=== PATIENT | male | born 1960 | race Caucasian/White ===

== ENCOUNTER 2022-09-07 14:30 | Emergency (ER) | payer OTHER ==
[~2022-09-07] VITALS: Ht 175.3 cm; Wt 98.9 kg
--- NOTE | 2022-09-07 14:40 | NUR ---
BIB [facility], FAMILY HE WAS TALKING TO ON THE PHONE CALLED 911 AFTER HE SOUNDED "LUPEE" AFTER TAKING HIS KETAMINE SL. PLACED IN BED, AAOX4, BREATHING EVEN AND UNLABORED SATURATING AT 97%RA.
--- NOTE | 2022-09-07 15:00 | NUR ---
AT BEDSIDE FOR EVAL.
--- NOTE | 2022-09-07 15:23 | NUR ---
Patient discharged to home in stable condition. Written and verbal after care instructions given. Patient verbalizes understanding of instruction.
[2022-09-07 15:26] VITALS: BP 145/97
== END 2022-09-07 15:26 | disposition home or self-care (01) ==
LOC: ER 14:32
DX: R41.82 Altered mental status, unspecified (principal); T41.295A Adverse effect of other general anesthetics, initial encounter; I10 Essential (primary) hypertension; E78.00 Pure hypercholesterolemia, unspecified; F41.9 Anxiety disorder, unspecified; F32.A Depression, unspecified; Y92.89 Other specified places as the place of occurrence of the external cause

== ENCOUNTER 2024-08-12 14:33 | Emergency (ER) | payer OTHER ==
[~2024-08-12] VITALS: Ht 177.8 cm; Wt 104.3 kg
[2024-08-12] MEDS ORDERED: TDAP [DIPH/PERTUSSIS/TET] 0.5 ML VIAL IM ONE (15:18)
[2024-08-12] MEDS ORDERED: LIDOCAINE 1% INJ 50 ML MDV IJ ONE (15:18)
[2024-08-12] MEDS: LIDOCAINE 1% INJ 50 ML MDV IJ ONE (15:29)
[2024-08-12] MEDS: TDAP [DIPH/PERTUSSIS/TET] 0.5 ML VIAL IM ONE (15:29)
[2024-08-12] MEDS ORDERED: CEPH500C2 PO (16:30)
[2024-08-12 16:39] VITALS: BP 128/78; TEMP 98.4; O2SAT 98
== END 2024-08-12 16:40 | disposition home or self-care (01) ==
LOC: ER 14:33
DX: S31.119A Laceration without foreign body of abdominal wall, unspecified quadrant without penetration into peritoneal cavity, initial encounter (principal); E03.9 Hypothyroidism, unspecified; E78.00 Pure hypercholesterolemia, unspecified; I10 Essential (primary) hypertension; I25.10 Atherosclerotic heart disease of native coronary artery without angina pectoris; K21.9 Gastro-esophageal reflux disease without esophagitis; F41.9 Anxiety disorder, unspecified; F32.A Depression, unspecified; Z95.5 Presence of coronary angioplasty implant and graft; Z60.2 Problems related to living alone; W26.8XXA Contact with other sharp object(s), not elsewhere classified, initial encounter; Y93.89 Activity, other specified; Y92.89 Other specified places as the place of occurrence of the external cause; Y99.8 Other external cause status
CPT/HCPCS: 12004; 90471; 90715; 99283; A6403; J3490